=== PATIENT | female | born 1975 | race Caucasian/White ===

== ENCOUNTER 2017-01-14 14:42 | Emergency (ER) | payer OTHER ==
[~2017-01-14] VITALS: Ht 175.3 cm; Wt 65.8 kg
[2017-01-14 15:00] VITALS: TEMP 36.7; Ht 175.3 cm; Wt 65.8 kg
[2017-01-14] MEDS ORDERED: SODIUM CHLORIDE 0.9% 1000ML 1,000 ML IV STA (16:06)
[2017-01-14] MEDS ORDERED: MoRPHine SULFATE 4 MG/ML 1 ML CARP\\VIAL IV STA ×2 (16:06→19:16)
[2017-01-14] MEDS ORDERED: ONDANSETRON INJ 2 MG/ML 2 ML VIAL IV STA (16:06)
[2017-01-14] MEDS ORDERED: SULF800T23 PO (16:09)
--- NOTE | 2017-01-14 16:25 | EMERGENCY ROOM VISIT NOTE ---
History First contact with patient: 15:50 Chief Complaint: KIDNEY STONE Stated Complaint: KIDNEY INFECTION - POSSIBLE KIDNEY STONE History of Present Illness The patient is a 41 year old female who presents to the Emergency Room with complaints of flank pain. The patient states that she saw her family doctor and was diagnosed with a urinary tract infection. She has been on Bactrim. She feels as though her symptoms are worsening. She reports bilateral flank pain, nausea, vomiting, chills. She reports subjective fever. She rates her discomfort a 9/10. She states that the dysuria, urgency and frequency persist. The patient has a history of kidney stone. She has required stent in the past. She denies any vaginal bleeding or discharge. She denies any pain in her chest or trouble breathing. Review of Systems A 10 system review of systems was completed with positives and pertinent negatives listed in the HPI. Past Medical/Surgical History Medical Problems: (1) Kidney stone Social History Smoking Status: Current Every Day Smoker Alcohol Use: none Marital Status: single Current/Historical Medications Scheduled Cephalexin Monohydrate (Keflex), 500 MG PO QID Sulfa/Trimethoprim (Bactrim Ds 800MG/160MG), 1 TAB PO BID Scheduled PRN Oxycodone/Acetaminophen 5MG/325MG (Percocet 5MG/325MG), 1 TAB PO Q4H PRN for Pain Allergies Coded Allergies: No Known Allergies (Verified , 01/14/17) Physical Exam Vital Signs Date Time Temp Pulse Resp B/P Pulse Ox O2 Delivery O2 Flow Rate FiO2 01/14/17 19:45 64 20 124/70 98 01/14/17 18:54 53 20 120/70 98 Room Air 01/14/17 15:00 36.7 74 20 127/76 97 Room Air Physical Exam VITALS: Vitals are noted on the nurse's note and reviewed by myself. Vital signs stable. The patient is afebrile. GENERAL: This is a 41-year-old female , in no acute distress, nondiaphoretic, well-developed well-nourished. SKIN: The skin was without rashes, erythema, edema, or bruising. There is no tenting of the skin. Capillary reflex less than 2 seconds. HEAD: Normocephalic atraumatic. EARS: External auditory canals clear, tympanic membranes pearly cronin without erythema or effusion bilaterally. EYES: Pupils equal round and reactive to light and accommodation. Conjunctivae without injection, sclerae without icterus. Extraocular movements intact. NOSE: Patent, turbinates without inflammation or discharge. MOUTH: Mucous membranes moist. Tonsils are not enlarged. Pharynx without erythema or exudate. Uvula midline. Airway patent. Tongue does not deviate. NECK: Supple without nuchal rigidity. No lymphadenopathy. No thyromegaly. Cervical spine is nontender. No JVD. HEART: Regular rate and rhythm without murmurs gallops or rubs. LUNGS: Clear to auscultation bilaterally without wheezes, rales or rhonchi. No dullness to percussion. No retractions or accessory muscle use. ABDOMEN: Positive bowel sounds x 4. Soft, moderate diffuse tenderness,, without masses or organomegaly. Kim sign negative. There is marked bilateral CVA tenderness. : The external genitalia is normal in appearance. There is moderate white vaginal discharge. There is no significant cervicitis. There is no cervical motion tenderness. There is moderate right adnexal tenderness. There is no left adnexal tenderness. Pelvic cultures were obtained. A female RN was present for the examination. MUSCULOSKELETAL: No muscle atrophy, erythema, or edema noted. Full range of motion in all extremities. No tenderness to palpation. Normal gait. Strength 5/5 throughout. NEURO: Patient was alert and oriented to person place and time. No focal neurological deficits. Medical Decision & Procedures ER Provider Diagnostic Interpretation: CT OF THE ABDOMEN AND PELVIS WITHOUT CONTRAST, STONE PROTOCOL CLINICAL HISTORY: Right flank pain. History of stones. COMPARISON STUDY: None. TECHNIQUE: Helical axial images of the abdomen and pelvis were obtained without IV or oral contrast according to renal stone protocol. FINDINGS: There is pectus excavatum deformity. Multiple bilateral renal calculi are noted. The largest is a 4 mm right renal calculi. There is malrotation of the right kidney. There is mild right collecting system dilatation. No ureteral calculi are identified. There is no perinephric infiltration. Unenhanced images of liver, spleen, adrenal glands and pancreas are normal. There is no evidence for a bowel obstruction. The appendix is normal. There is sigmoid diverticulosis without evidence for acute diverticulitis. No suspicious skeletal lesions are identified. Evaluation of the abdomen and pelvis suboptimal on this unenhanced exam. IMPRESSION: 1. Bilateral nephrolithiasis. No ureteral calculi. Mild right collecting system dilatation may be chronic although a recently passed with could have this imaging appearance. No perinephric infiltration. 2. Normal appendix. 3. No bowel obstruction. Laboratory Results 01/14/17 16:39 Red Blood Count 4.25, Mean Corpuscular Volume 99.5, Mean Corpuscular Hemoglobin 33.4, Mean Corpuscular Hemoglobin Concent 33.6, Mean Platelet Volume 10.0, Neutrophils (%) (Auto) 70.4, Lymphocytes (%) (Auto) 24.0, Monocytes (%) (Auto) 3.8, Eosinophils (%) (Auto) 1.0, Basophils (%) (Auto) 0.6, Neutrophils # (Auto) 7.14, Lymphocytes # (Auto) 2.43, Monocytes # (Auto) 0.39, Eosinophils # (Auto) 0.10, Basophils # (Auto) 0.06 01/14/17 16:39 Test 01/14/17 16:20 01/14/17 16:39 01/14/17 19:10 Urine Color YELLOW Urine Appearance TURBID (CLEAR) Urine pH 8.5 (4.5-7.5) Urine Specific [place] 1.012 (1.000-1.030) Urine Protein NEG (NEG) Urine Glucose (UA) NEG (NEG) Urine Ketones NEG (NEG) Urine Occult Blood 1+ (NEG) Urine Nitrite NEG (NEG) Urine Bilirubin NEG (NEG) Urine Urobilinogen NEG (NEG) Urine Leukocyte Esterase NEG (NEG) Urine WBC (Auto) 10-30 /hpf (0-5) Urine RBC (Auto) 0-4 /hpf (0-4) Urine Hyaline Casts (Auto) 0 /lpf (0-5) Urine Epithelial Cells (Auto) >30 /lpf (0-5) Urine Bacteria (Auto) 4+ (NEG) Urine Crystals AMORPHOUS SEDIMENT (NONE Urine Pathogenic Casts /lpf (0) Urine Test NEG (NEG) White Blood Count 10.14 K/uL (4.8-10.8) Red Blood Count 4.25 M/uL (4.2-5.4) Hemoglobin 14.2 g/dL (12.0-16.0) Hematocrit 42.3 % (37-47) Mean Corpuscular Volume 99.5 fL (80-100) Mean Corpuscular Hemoglobin 33.4 pg (25-34) Mean Corpuscular Hemoglobin Concent 33.6 g/dl (32-36) Platelet Count 273 K/uL (130-400) Mean Platelet Volume 10.0 fL (7.4-10.4) Neutrophils (%) (Auto) 70.4 % Lymphocytes (%) (Auto) 24.0 % Monocytes (%) (Auto) 3.8 % Eosinophils (%) (Auto) 1.0 % Basophils (%) (Auto) 0.6 % Neutrophils # (Auto) 7.14 K/uL (1.4-6.5) Lymphocytes # (Auto) 2.43 K/uL (1.2-3.4) Monocytes # (Auto) 0.39 K/uL (0.11-0.59) Eosinophils # (Auto) 0.10 K/uL (0-0.5) Basophils # (Auto) 0.06 K/uL (0-0.2) RDW Standard Deviation 48.8 fL (36.4-46.3) RDW Coefficient of Variation 13.6 % (11.5-14.5) Immature Granulocyte % (Auto) 0.2 % Immature Granulocyte # (Auto) 0.02 K/uL (0.00-0.02) Anion Gap 5.0 mmol/L (3-11) Est Creatinine Clear Calc Drug Dose 100.9 ml/min Estimated GFR () 111.9 Estimated GFR (Non- 96.6 BUN/Creatinine Ratio 15.4 (10-20) Calcium Level 9.0 mg/dl (8.5-10.1) Total Bilirubin 0.4 mg/dl (0.2-1) Aspartate Amino Transf (AST/SGOT) U/L (15-37) Alanine Aminotransferase (ALT/SGPT) 21 U/L (12-78) Alkaline Phosphatase 74 U/L (45-117) Total Protein 7.8 gm/dl (6.4-8.2) Albumin 4.1 gm/dl (3.4-5.0) Globulin 3.7 gm/dl (2.5-4.0) Albumin/Globulin Ratio 1.1 (0.9-2) Date/Time Source Procedure Growth Status 01/14/17 19:10 Vaginal Swab Trichomonas Preparation - Final Complete Medications Administered Medications (Trade) Dose Ordered Sig/Allyn Route Start Time Stop Time Status Last Admin Dose Admin Sodium Chloride (Nss 1000ml) 1,000 ml @ 999 mls/hr Q1H1M STAT IV 01/14/17 16:06 01/14/17 17:06 DC 01/14/17 16:06 999 MLS/HR Morphine Sulfate (MoRPHine SULFATE INJ) 4 mg NOW STAT IV 01/14/17 16:06 01/14/17 16:09 DC 01/14/17 16:54 4 MG Ondansetron HCl (Zofran Inj) 4 mg NOW STAT IV 01/14/17 16:06 01/14/17 16:09 DC 01/14/17 16:53 4 MG Ceftriaxone Sodium (Rocephin Inj) 1 gm NOW STAT IV 01/14/17 18:06 01/14/17 18:07 DC 01/14/17 18:53 1 GM Morphine Sulfate (MoRPHine SULFATE INJ) 4 mg NOW STAT IV 01/14/17 19:16 01/14/17 19:17 DC 01/14/17 19:32 4 MG Oxycodone/ Acetaminophen (Percocet 5/ 325MG Home Pack) 1 homepack UD ONCE PO 01/14/17 19:30 01/14/17 19:31 DC 01/14/17 19:32 1 HOMEPACK ED Course The patient was seen and examined. Previous visits were reviewed. Medication list was reviewed. The patient does not have a leukocytosis. She does not have any significant electrolyte abnormality. Urinalysis suggests urinary tract infection or possibly contamination. Pelvic cultures are pending. CT scan of the abdomen and pelvis was obtained as above. There is bilateral nephrolithiasis. There is no ureterolithiasis. There is question of potential passed stone given the dilatation of the right collecting system. The patient was hydrated with normal saline. She was initially given 4 mg IV morphine and 4 mg IV Zofran with good improvement in her pain. She was given 1 g IV Rocephin. Prior to discharge she complained of pain again and was given 4 mg IV morphine. The patient presents to the emergency department with flank pain and symptoms of urinary tract infection. Urinalysis appears to be consistent with urinary tract infection. I also consider contamination. The patient will be placed on Keflex and given a prescription for Percocet. Pelvic cultures are pending and she was advised that we will contact her if the results indicate need for change in treatment. The patient should follow-up with her family doctor next week. She should return to the ER with any worsening symptoms. The case was discussed with Dr. Mckenzie who agrees with the assessment and management plan. Medical Decision DIFFERENTIAL DIAGNOSIS: Hepatitis, cholecystitis, cholangitis, biliary colic, pancreatitis, pneumonia, subdiaphragmatic abscess, appendicitis, inguinal hernia , nephrolithiasis, inflammatory bowel disease, mesenteric adenitis, peptic ulcer disease, GERD, gastritis, pancreatitis, myocardial infarction, pericarditis, ruptured aortic aneurysm, appendicitis, gastroenteritis, bowel obstruction, splenic infarct, diverticulitis, mesenteric ischemia, metabolic, peritonitis, among others. Impression Primary Impression: Right flank pain Additional Impression: UTI (urinary tract infection) Departure Information Dispostion Home / Self-Care Condition GOOD Prescriptions Cephalexin Monohydrate (Keflex) 500 Mg Cap 500 MG PO QID for 7 Days, #28 CAP Prov: Brandee Doll PA-C 01/14/17 Oxycodone/Acetaminophen 5MG/325MG (PERCOCET 5MG/325MG) Tab 1 TAB PO Q4H Y for Pain, #18 TAB For Initial Treatment Prov: Brandee Doll PA-C 01/14/17 Referrals No Doctor, Assigned (PCP) Patient Instructions [facility], UTI Additional Instructions Keflex every 6 hours for 7 days Percocet 1-2 tablet every 4-6 hours as needed for worse pain. No driving or alcohol use with Percocet and do not take with Tylenol. Motrin 600 mg every 6-8 hours or moderate pain Follow up with urology as scheduled by your family doctor We will contact you if the culture results indicate the need for change in treatment Return with any worsening symptoms Problem Qualifiers Additional Impression: UTI (urinary tract infection) Urinary tract infection type: acute cystitis Hematuria presence: with hematuria Qualified Codes: N30.01 - Acute cystitis with hematuria
[2017-01-14 16:52] LABS: BASO % 0.6 %; BASO ABS # 0.06 K/uL (0-0.2); COMPLETE YES; HEMATOCRIT 42.3 % (37-47); IG% 0.2 %; LYMPH ABS # 2.43 K/uL (1.2-3.4); MEAN CELL VOLUME 99.5 fL (80-100); MEAN CORPUSCULAR HEMOGLOBIN 33.4 pg (25-34); MEAN CORPUSCULAR HGB CONC 33.6 g/dl (32-36); MONO % 3.8 %; NEUT % 70.4 %; PLATELET COUNT 273 K/uL (130-400); RED BLOOD COUNT 4.25 M/uL (4.2-5.4); WHITE BLOOD COUNT 10.14 K/uL (4.8-10.8)
[2017-01-14 16:54] LABS: PREG INTERNAL NEGATIVE QC NEG CLEAR BACKGROUND; PREG INTERNAL POSITIVE QC POS CONTROL LINE
[2017-01-14 16:57] LABS: URINE APPEARANCE TURBID (CLEAR); URINE BILIRUBIN NEG (NEG); URINE COLOR YELLOW; URINE EPITHELIAL CELL AUTO >30 /lpf (0-5); URINE NITRITE NEG (NEG); URINE PH 8.5 (4.5-7.5); URINE SPECIFIC GRAVITY 1.012 (1.000-1.030); UROBILINOGEN NEG (NEG); ZZUR CULT IF INDIC CLEAN CATCH YES
[2017-01-14 17:04] LABS: MANUAL MICROSCOPIC REQUIRED? NO; REVIEW REQ? YES
[2017-01-14 17:20] LABS: BLOOD UREA NITROGEN 12 mg/dl (7-18); BUN/CREATININE RATIO 15.4 (10-20); CARBON DIOXIDE 27 mmol/L (21-32); CHLORIDE 108 mmol/L (98-107); CREATININE 0.77 mg/dl (0.60-1.20); GLUCOSE 87 mg/dl (70-99); SODIUM 140 mmol/L (136-145)
[2017-01-14 17:21] LABS: ALB/GLOB RATIO 1.1 (0.9-2); ALKALINE PHOSPHATASE 74 U/L (45-117); ALT/SGPT 21 U/L (12-78)
--- NOTE | 2017-01-14 17:50 | DIAGNOSTIC IMAGING REPORT ---
CT OF THE ABDOMEN AND PELVIS WITHOUT CONTRAST, STONE PROTOCOL CLINICAL HISTORY: Right flank pain. History of stones. COMPARISON STUDY: None. TECHNIQUE: Helical axial images of the abdomen and pelvis were obtained without IV or oral contrast according to renal stone protocol. FINDINGS: There is pectus excavatum deformity. Multiple bilateral renal calculi are noted. The largest is a 4 mm right renal calculi. There is malrotation of the right kidney. There is mild right collecting system dilatation. No ureteral calculi are identified. There is no perinephric infiltration. Unenhanced images of liver, spleen, adrenal glands and pancreas are normal. There is no evidence for a bowel obstruction. The appendix is normal. There is sigmoid diverticulosis without evidence for acute diverticulitis. No suspicious skeletal lesions are identified. Evaluation of the abdomen and pelvis suboptimal on this unenhanced exam. IMPRESSION: 1. Bilateral nephrolithiasis. No ureteral calculi. Mild right collecting system dilatation may be chronic although a recently passed with could have this imaging appearance. No perinephric infiltration. 2. Normal appendix. 3. No bowel obstruction. Electronically signed by: Ruben Golden M.D. 01/14/2017 5:49 PM Dictated Date/Time: 01/14/2017 5:44 PM
[2017-01-14] MEDS ORDERED: CEFTRIAXONE SOD INJ 1 GM ADDVIAL IV STA (18:06)
[2017-01-14] MEDS ORDERED: CEPH500C PO (19:18)
[2017-01-14] MEDS ORDERED: OXYC-57 PO (19:18)
[2017-01-14] MEDS ORDERED: PERCOCET HOME PACK PO ONE (19:30)
[2017-01-14 19:45] VITALS: BP 124/70; PULSE 64; O2SAT 98
[2017-01-18 11:08] LABS: CHLAMYDIA TRACH RNA*** NOT DETECTED (NOT DETECTED); GC (NEIS GONORRHOEAE)RNA** NOT DETECTED (NOT DETECTED)
== END 2017-01-14 19:45 | disposition home or self-care (01) ==
LOC: C.EDB 14:45
DX: R10.84 Generalized abdominal pain (principal); N30.01 Acute cystitis with hematuria; F17.200 Nicotine dependence, unspecified, uncomplicated

== ENCOUNTER → 2017-03-22 | Outpatient (CLI) | payer OTHER ==
[~2017-03-22] MED LIST: OXYC-57 PO; SULF800T23 PO
== END | disposition home or self-care (01) ==
LOC: C.RDSM 12:51
PROVIDERS: ATTEND Family Medicine
DX: M79.642 Pain in left hand (principal)

== ENCOUNTER → 2017-03-24 | Outpatient (CLI) | payer OTHER ==
[~2017-03-24] MED LIST changes: +GADAVIST IV PRN
--- NOTE | 2017-03-24 12:48 | DIAGNOSTIC IMAGING REPORT ---
MRI OF THE LEFT HAND COMBO CLINICAL HISTORY: Left hand pain. Mass. COMPARISON STUDY: Radiographs of the left hand dated 03/22/2017. TECHNIQUE: MRI of the left hand is performed utilizing various T1 and T2-weighted sequences in the axial, sagittal, coronal planes. Contrast-enhanced sequences were acquired following the IV administration of 6 cc of Gadavist. FINDINGS: Normal marrow signal intensity is maintained throughout the regional skeletal structures. There is no MRI evidence of fracture. There is a well-circumscribed T1 hypointense and T2 hyperintense ovoid mass lesion identified between the proximal aspect of the third and fourth proximal phalanges, slightly palmar in location. This demonstrates homogeneous postcontrast enhancement and measures 2.0 x 1.2 x 1.2 cm. This is deep to the marker at the indicated site of interest. There is no bony involvement. No additional enhancing mass lesion is seen. The regional musculature is normal in bulk and signal intensity. The visualized flexor and extensor tendons are intact. IMPRESSION: There is a well-circumscribed ovoid mass lesion between the third and fourth proximal phalanges as detailed above. This is pathologically indeterminant, and the appearance suggests a nerve sheath tumor. Surgical resection is advised. Electronically signed by: Juan Langley M.D. 03/24/2017 12:47 PM Dictated Date/Time: 03/24/2017 12:39 PM
== END | disposition home or self-care (01) ==
LOC: C.MRI 10:24
PROVIDERS: ATTEND Family Medicine
DX: R22.32 Localized swelling, mass and lump, left upper limb (principal); M25.841 Other specified joint disorders, right hand

== ENCOUNTER 2017-07-15 01:40 | Emergency (ER) | payer OTHER ==
[~2017-07-15] VITALS: Ht 167.6 cm; Wt 64.1 kg
[~2017-07-15 01:40] MED LIST changes: -GADAVIST IV PRN
[2017-07-15 01:43] VITALS: BP 113/52; PULSE 80; TEMP 36.7; O2SAT 98; Ht 167.6 cm; Wt 64.1 kg
[2017-07-15] MEDS ORDERED: SULFAMETHOXAZOLE/TRIMETHOPRIM DS 800/160MG TAB PO STA (02:08)
--- NOTE | 2017-07-15 02:15 | EMERGENCY ROOM VISIT NOTE ---
History Report prepared by Nneka: Renata Huerta Under the Supervision of: Dr. Sobia Winter D.O. First contact with patient: 01:54 Chief Complaint: ARM PAIN Stated Complaint: ARMPIT PAIN History of Present Illness The patient is a 41 year old female who presents to the Emergency Room with complaints of worsening right armpit pain starting around 1 week ago. The patient thinks that she might have an ingrown hair. She had one on the left side before which had to be lanced and got infected. She started having some soreness in her armpit 1 week ago which has worsened. There is a bump which is progressively getting bigger and more painful. She denies any fever or other rashes or sores. She denies any history of diabetes or MRSA. She has not had any ingrown hairs in other locations besides her left armpit. Source of History: patient Onset: 1 week ago Position: other (right armpit) Quality: other (ingrown hair pain) Timing: worsening Associated Symptoms: No fevers, No rash Review of Systems See HPI for pertinent positives & negatives. A total of 6 systems reviewed and were otherwise negative. Past Medical & Surgical Medical Problems: (1) Kidney stone Family History No pertinent family history stated. Social History Smoking Status: Current Every Day Smoker Alcohol Use: none Marital Status: single Occupation Status: employed Current/Historical Medications Scheduled Sulfa/Trimethoprim (Bactrim Ds 800MG/160MG), 1 TAB PO BID Allergies Coded Allergies: No Known Allergies (Verified , 07/15/17) Physical Exam Vital Signs Date Time Temp Pulse Resp B/P (MAP) Pulse Ox O2 Delivery O2 Flow Rate FiO2 07/15/17 01:43 36.7 80 18 113/52 98 Room Air Physical Exam GENERAL: alert, well appearing, well nourished, no distress, non-toxic SKIN: no rashes and no bruising UPPER EXTREMITIES: Right axilla with 1 cm area of tenderness and induration. No overlying erythema. No rashes or sores to the area. No increased warmth. No central fluctuance. No other lymphadenopathy. LOWER EXTREMITIES: No pitting edema. NEURO EXAM: Normal sensorium, cranial nerves II-XII grossly intact, normal speech, no gross weakness of arms, no gross weakness of legs. Medical Decision & Procedures Medications Administered Medications (Trade) Dose Ordered Sig/Allyn Route Start Time Stop Time Status Last Admin Dose Admin Trimethoprim/ Sulfamethoxazole (Septra Ds 800/ 160MG Tab) 1 tab NOW STAT PO 07/15/17 02:08 07/15/17 02:09 DC 07/15/17 02:19 1 TAB ED Course 0202: The patient was evaluated in room B9. A complete history and physical exam was performed. I discussed the findings and the treatment plan with the patient. She verbalizes agreement and understanding. She was discharged home. 0208: Trimethoprim/Sulfamethoxazole 1 tab PO. Medical Decision Differential diagnosis: Etiologies such as cellulitis, abscess, MRSA infection, DVT, necrotizing fasciitis, dermatitis, drug eruption, as well as others were entertained.. Patient well-appearing here, no evidence of worsening infection at this time. Area does not appear amenable to incision and drainage at this time. Discussed with her use of antibiotics, symptoms to watch and return for, she verbalized understanding was agreeable with plan. Medication Reconcilliation Current Medication List: was personally reviewed by me Blood Pressure Screening Patient's blood pressure: Normal blood pressure Blood pressure disposition: Did not require urgent referral Impression Primary Impression: Axillary abscess Scribe Attestation The scribe's documentation has been prepared under my direction and personally reviewed by me in its entirety. I confirm that the note above accurately reflects all work, treatment, procedures, and medical decision making performed by me. Departure Information Dispostion Home / Self-Care Prescriptions Sulfa/Trimethoprim (Bactrim Ds 800MG/160MG) Tab 1 TAB PO BID, #14 TAB Prov: Sobia Winter, DO 07/15/17 Referrals Femi Weems M.D. (PCP) Patient Instructions [facility] Additional Instructions Please do not shave the affected arm pit or use deodorant until infection has resolved. Please take the antibiotics daily. Please have your family doctor recheck the area next week to assure it is getting better. If you develop an increase in the size of the affected area, notice increased warmth or redness in the arm pit, develop swelling to the arm pit, fevers or chills, nausea or vomiting, or you have any other new concerns, please return the emergency room. Please consider taking an probiotic while you're on antibiotics. Please make sure you're drinking plenty of water.
[2017-07-15] MEDS ORDERED: SULF800T23 PO (02:16)
== END 2017-07-15 02:15 | disposition home or self-care (01) ==
LOC: C.EDB 01:41
DX: L02.411 Cutaneous abscess of right axilla (principal); Z87.442 Personal history of urinary calculi; F17.210 Nicotine dependence, cigarettes, uncomplicated

== ENCOUNTER 2017-08-01 17:23 | Emergency (ER) | payer SELFPAY ==
[~2017-08-01] VITALS: Ht 167.6 cm; Wt 64.0 kg
[~2017-08-01 17:23] MED LIST changes: -OXYC-57 PO
[2017-08-01 17:28] VITALS: TEMP 36.7; Ht 167.6 cm; Wt 64.0 kg
--- NOTE | 2017-08-01 18:46 | DIAGNOSTIC IMAGING REPORT ---
TWO VIEW CHEST CLINICAL HISTORY: Productive cough. FINDINGS: PA and lateral chest radiographs are compared to study dated 10/20/2006. The cardiomediastinal silhouette is unremarkable. The lungs and pleural spaces are clear. There is no pneumothorax. The bony thorax appears intact. IMPRESSION: No active disease in the chest. Electronically signed by: Juan Langley M.D. 08/01/2017 6:45 PM Dictated Date/Time: 08/01/2017 6:45 PM
[2017-08-01] MEDS ORDERED: VNTHFA/IN INH (19:08)
[2017-08-01] MEDS ORDERED: HYDR5SYP11 PO (19:08)
[2017-08-01] MEDS ORDERED: AZITTAB PO (19:08)
[2017-08-01] MEDS ORDERED: TOPI100T20 PO (19:27)
[2017-08-01] MEDS ORDERED: RIZA10TA18 PO (19:29)
[2017-08-01 19:37] VITALS: BP 132/70; PULSE 78; O2SAT 98
--- NOTE | 2017-08-01 21:05 | EMERGENCY ROOM VISIT NOTE ---
History First contact with patient: 17:32 Chief Complaint: ILLNESS Stated Complaint: SORE THROAT, COUGH, SOB History of Present Illness The patient is a 41 year old female who presents to the Emergency Room with complaints of worsening productive cough, sore throat, runny nose and chest discomfort. The patient also reports difficulty sleeping because of coughing. She reports that her sister had a cold last week. The patient's symptoms started on Tuesday. She denies any history of lung disease, including asthma. She smokes one half pack of cigarettes daily. She denies any sitting in sinus congestion. She denies headache, neck pain or back pain, and rates her discomfort a 4 out of 10. Review of Systems 10 system review was performed and was negative except for pertinent positives and negatives as indicated in history of present illness Past Medical/Surgical History Medical Problems: (1) Kidney stone Family History Unremarkable Social History Smoking Status: Current Every Day Smoker Alcohol Use: none Marital Status: single Occupation Status: employed Current/Historical Medications Scheduled Albuterol Hfa (Ventolin Hfa), 2 PUFFS INH QID Azithromycin (Zithromax Z-Karl), 0 PO UD Rizatriptan Benzoate (Maxalt), Unknown Dose PO PRN/UD Topiramate (Topamax), Unknown Dose PO DAILY Scheduled PRN Hydrocodone W/ Homatropine (Hycodan 5/1.5MG 5 Ml), 5-10 ML PO Q4H PRN for Cough Physical Exam Vital Signs Date Time Temp Pulse Resp B/P (MAP) Pulse Ox O2 Delivery O2 Flow Rate FiO2 08/01/17 19:37 78 20 132/70 98 08/01/17 17:28 36.7 86 18 124/78 98 Room Air Physical Exam CONSTITUTIONAL: Healthy and well nourished. Alert and oriented X 3 with positive affect. Patient has a mild nonproductive cough on exam. HEENT: Normocephalic, atraumatic. Pupils equal, round and reactive. Ears and nares are clear. OROPHARYNX: No tonsillar hypertrophy or exudates. NECK: Full active range of motion without discomfort. No nuchal rigidity, JVD or carotid bruits. RESPIRATORY: Clear to auscultation bilaterally with no wheezing, crackles, rhonchi or stridor. CARDIOVASCULAR: Regular rate and rhythm with no murmurs, rubs or gallops. GASTROINTESTINAL: Bowel sounds present in all quadrants. Soft and nontender to palpation. MUSCULOSKELETAL: Full range of motion of all joints without discomfort. INTEGUMENTARY: No rash or other significant dermatologic conditions noted. NEUROLOGIC: No focal neurologic deficits noted. Medical Decision & Procedures ER Provider Diagnostic Interpretation: My interpretation of a two-view chest x-ray does not show any consolidations or cardiomegaly. Radiologist report is as follows: TWO VIEW CHEST CLINICAL HISTORY: Productive cough. FINDINGS: PA and lateral chest radiographs are compared to study dated 10/20/2006. The cardiomediastinal silhouette is unremarkable. The lungs and pleural spaces are clear. There is no pneumothorax. The bony thorax appears intact. IMPRESSION: No active disease in the chest. ED Course Patient history and physical exam were performed. Nurse's notes were reviewed. Vital signs were reviewed and were normal. O2 saturation is not 8% on room air, and the patient is afebrile. The patient was advised that she likely has a viral bronchitis. She was advised that antibiotics do not kill viruses. She requested a prescription for something to help with her cough. She was dispensed an AeroChamber, and provided prescriptions for a Ventolin metered- dose inhaler and Hycodan cough syrup. If the patient's symptoms worsen, she was provided a prescription for a Z-Karl. She was instructed to follow-up with her PCP if symptoms are not improving within the next week. The patient was happy with plan of care, and voiced understanding of all discharge instructions. Medical Decision Medication Reconcilliation Current Medication List: was personally reviewed by nd Blood Pressure Screening Patient's blood pressure: Normal blood pressure Impression Primary Impression: Acute bronchitis Departure Information Prescriptions Azithromycin (ZITHROMAX Z-KARL) 250 Mg Tab 0 PO UD, #1 PKT 2 TABS DAY 1, THEN 1 TAB DAILY FOR 4 DAYS Prov: Davon Thibodeaux PA 08/01/17 Hydrocodone W/ Homatropine (HYCODAN 5/1.5MG 5 ML) 1 Syp Syp 5-10 ML PO Q4H Y for Cough, #200 ML Prov: Davon Thibodeaux PA 08/01/17 Albuterol Hfa (VENTOLIN HFA) 200 Puffs/52173 Mcg Aers 2 PUFFS INH QID, #1 INHALER Prov: Davon Thibodeaux PA 08/01/17 Referrals Femi Weems M.D. (PCP) Patient Instructions [facility] Problem Qualifiers Primary Impression: Acute bronchitis Bronchitis organism: unspecified organism Qualified Codes: J20.9 - Acute bronchitis, unspecified
== END 2017-08-01 19:38 | disposition home or self-care (01) ==
LOC: C.EDB 17:23
DX: J20.9 Acute bronchitis, unspecified (principal); F17.210 Nicotine dependence, cigarettes, uncomplicated; Z87.442 Personal history of urinary calculi; Z79.899 Other long term (current) drug therapy

== ENCOUNTER 2017-08-04 20:59 | Emergency (ER) | payer SELFPAY ==
[~2017-08-04] VITALS: Ht 167.6 cm; Wt 64.8 kg
[~2017-08-04 20:59] MED LIST changes: +AZITTAB PO; +HYDR5SYP11 PO; +RIZA10TA18 PO; -SULF800T23 PO; +TOPI100T20 PO; +VNTHFA/IN INH
[2017-08-04 21:01] VITALS: TEMP 36.5; Ht 167.6 cm; Wt 64.8 kg
[2017-08-04] MEDS ORDERED: TOPI50TA24 PO (21:21)
[2017-08-04] MEDS ORDERED: METHYLPREDNISOLONE 125 MG VIAL IV STA (21:44)
[2017-08-04] MEDS ORDERED: SODIUM CHLORIDE 0.9% 1000ML 1,000 ML IV ONE (21:45)
[2017-08-04 22:31] LABS: BASO % 0.7 %; BASO ABS # 0.06 K/uL (0-0.2); COMPLETE YES; EOS % 2.3 %; HEMATOCRIT 38.6 % (37-47); IG% 0.4 %; LYMPH % 38.9 %; LYMPH ABS # 3.32 K/uL (1.2-3.4); MEAN CELL VOLUME 97.2 fL (80-100); MEAN CORPUSCULAR HGB CONC 33.9 g/dl (32-36); MONO % 4.9 %; NEUT % 52.8 %; PLATELET COUNT 222 K/uL (130-400); RED BLOOD COUNT 3.97 M/uL (4.2-5.4); WHITE BLOOD COUNT 8.53 K/uL (4.8-10.8)
[2017-08-04 22:46] LABS: CALCIUM 9.3 mg/dl (8.5-10.1); CREATININE 0.77 mg/dl (0.60-1.20); POTASSIUM 3.5 mmol/L (3.5-5.1)
[2017-08-04 22:49] LABS: ALB/GLOB RATIO 1.2 (0.9-2)
[2017-08-04 23:43] VITALS: BP 116/66; PULSE 60; O2SAT 95
--- NOTE | 2017-08-05 04:52 | EMERGENCY ROOM VISIT NOTE ---
History First contact with patient: 21:33 Chief Complaint: FLU LIKE SX Stated Complaint: FEVER,CHILLS,BODY ACHES,SOB History of Present Illness The patient is a 41 year old female who presents to the Emergency Room with complaints of fevers, chills, body aches, and persistent cough for the past several days. The patient was initially seen and evaluated in this department with his complaint 3 days ago. She was started on Zithromax and an inhaler for bronchitis. She states that these have improved her symptoms, however she does not feel that she is improving fast enough. The patient has had the last few days off work, and does not feel well to return, prompting her to return here for evaluation. She states that she had an episode of emesis today which was different. No diarrhea or other symptoms. She rates her discomfort a 2/10. Review of Systems More than 10 systems were reviewed and otherwise negative with the exception of history of present illness. Past Medical/Surgical History Medical Problems: (1) Kidney stone Family History No pertinent family history Social History Smoking Status: Never Smoker Alcohol Use: none Marital Status: single Occupation Status: employed Current/Historical Medications Scheduled Albuterol Hfa (Ventolin Hfa), 2 PUFFS INH QID Topiramate (Topamax), 50 MG PO QAM Scheduled PRN Hydrocodone W/ Homatropine (Hycodan 5/1.5MG 5 Ml), 5-10 ML PO Q4H PRN for Cough Rizatriptan Benzoate (Maxalt), 10 MG PO UD PRN for Migraine Physical Exam Vital Signs Date Time Temp Pulse Resp B/P (MAP) Pulse Ox O2 Delivery O2 Flow Rate FiO2 08/04/17 23:43 60 18 116/66 95 08/04/17 21:01 36.5 86 16 151/84 97 Room Air Physical Exam VITALS: Vitals are noted on the nurse's note and reviewed by myself. Vital signs stable. GENERAL: Well-developed, well-nourished, white female, who is in no acute distress and resting comfortably. Patient is cooperative with the examination. HEAD: Normocephalic atraumatic. EARS: External ear normal. External auditory canals clear, tympanic membranes pearly cronin without erythema or effusion bilaterally. EYES: Pupils equal round and reactive to light and accommodation. Conjunctivae without injection, sclerae without icterus. Extraocular movements intact. NOSE: Patent, turbinates without inflammation or discharge. MOUTH: Mucous membranes moist. Tonsils are not enlarged. Pharynx without erythema, blood, or exudate. Uvula midline. Airway patent. NECK: Supple without nuchal rigidity. No lymphadenopathy. No thyromegaly. Cervical spine is nontender. HEART: Regular rate and rhythm without murmurs gallops or rubs. LUNGS: Clear to auscultation bilaterally without wheezes, rales or rhonchi. No retractions or accessory muscle use. ABDOMEN: Positive normal bowel sounds x 4. Soft, nontender, without masses or organomegaly. No guarding or rebound tenderness. MUSCULOSKELETAL: No muscle atrophy, erythema, or edema noted. Full range of motion without joint tenderness in all extremities. Medical Decision & Procedures Laboratory Results 08/04/17 22:05 Red Blood Count 3.97, Mean Corpuscular Volume 97.2, Mean Corpuscular Hemoglobin 33.0, Mean Corpuscular Hemoglobin Concent 33.9, Mean Platelet Volume 10.0, Neutrophils (%) (Auto) 52.8, Lymphocytes (%) (Auto) 38.9, Monocytes (%) (Auto) 4.9, Eosinophils (%) (Auto) 2.3, Basophils (%) (Auto) 0.7, Neutrophils # (Auto) 4.50, Lymphocytes # (Auto) 3.32, Monocytes # (Auto) 0.42, Eosinophils # (Auto) 0.20, Basophils # (Auto) 0.06 08/04/17 22:05 Test 08/04/17 22:05 White Blood Count 8.53 K/uL (4.8-10.8) Red Blood Count 3.97 M/uL (4.2-5.4) Hemoglobin 13.1 g/dL (12.0-16.0) Hematocrit 38.6 % (37-47) Mean Corpuscular Volume 97.2 fL (80-100) Mean Corpuscular Hemoglobin 33.0 pg (25-34) Mean Corpuscular Hemoglobin Concent 33.9 g/dl (32-36) Platelet Count 222 K/uL (130-400) Mean Platelet Volume 10.0 fL (7.4-10.4) Neutrophils (%) (Auto) 52.8 % Lymphocytes (%) (Auto) 38.9 % Monocytes (%) (Auto) 4.9 % Eosinophils (%) (Auto) 2.3 % Basophils (%) (Auto) 0.7 % Neutrophils # (Auto) 4.50 K/uL (1.4-6.5) Lymphocytes # (Auto) 3.32 K/uL (1.2-3.4) Monocytes # (Auto) 0.42 K/uL (0.11-0.59) Eosinophils # (Auto) 0.20 K/uL (0-0.5) Basophils # (Auto) 0.06 K/uL (0-0.2) RDW Standard Deviation 45.9 fL (36.4-46.3) RDW Coefficient of Variation 12.8 % (11.5-14.5) Immature Granulocyte % (Auto) 0.4 % Immature Granulocyte # (Auto) 0.03 K/uL (0.00-0.02) Anion Gap 7.0 mmol/L (3-11) Est Creatinine Clear Calc Drug Dose 90.9 ml/min Estimated GFR () 111.9 Estimated GFR (Non- 96.6 BUN/Creatinine Ratio 20.0 (10-20) Calcium Level 9.3 mg/dl (8.5-10.1) Total Bilirubin 0.2 mg/dl (0.2-1) Aspartate Amino Transf (AST/SGOT) 16 U/L (15-37) Alanine Aminotransferase (ALT/SGPT) 29 U/L (12-78) Alkaline Phosphatase 80 U/L (45-117) Total Protein 7.2 gm/dl (6.4-8.2) Albumin 3.9 gm/dl (3.4-5.0) Globulin 3.3 gm/dl (2.5-4.0) Albumin/Globulin Ratio 1.2 (0.9-2) Medications Administered Medications (Trade) Dose Ordered Sig/Allyn Route Start Time Stop Time Status Last Admin Dose Admin Sodium Chloride 1,000 ml @ 999 mls/hr Q1H1M ONCE IV 08/04/17 21:45 08/04/17 22:45 DC 08/04/17 22:03 999 MLS/HR Methylprednisolone Sodium Succinate (Solu-Medrol IV) 125 mg NOW STAT IV 08/04/17 21:44 08/04/17 21:45 DC 08/04/17 22:03 125 MG ED Course Physical exam and history were performed. Nursing notes, EMR, and Medication List were personally reviewed. Patient appears to have flulike symptoms for the past several days. The patient does not appear toxic on examination. She states that she does have some different symptoms than from a few days ago, as she now has had vomiting. IV access was established and labs were obtained. The patient was hydrated with normal saline. The patient's blood work is as above and was reviewed. She does not have a significantly elevated white blood cell count or gross anemia, bandemia, or significant electrolyte imbalance. Transaminases are nondiagnostic. Overall the patient appears well for discharge home. She does not have signs of sepsis or other more life-threatening process. Her symptoms certainly favor a viral etiology. There is a component of this with the patient is needing a few more days off work. I will write her a note, but informed her that she needs to follow up with her PCP for further care and management. The patient was otherwise invited back to the ER with any new, worsening, or concerning symptoms. The chart was completed utilizing [employer] Speech Voice Recognition Software. Grammatical errors, random word insertions, pronoun errors, and incomplete sentences are an occasional consequence of this system due to software limitations, ambient noise, and hardware issues. Any formal questions or concerns about the content, text, or information contained within the body of this dictation should be directly addressed to the provider for clarification. . Medical Decision Differential diagnosis: Etiologies such as viral syndrome, otitis, pharyngitis, pneumonia, influenza, meningitis, urinary tract infection, sepsis, bacteremia, as well as others were entertained. Impression Primary Impression: Influenza-like symptoms Departure Information Dispostion Home / Self-Care Condition GOOD Forms HOME CARE DOCUMENTATION FORM, Work Instructions, Additional Instructions: Patient seen and evaluated in the emergency department for medical care. Return to work on . IMPORTANT VISIT INFORMATION Patient Instructions [facility] Additional Instructions You were seen and evaluated today on an emergency basis only. This is not a substitute for, or an effort to provide, complete comprehensive medical care. It is not possible to recognize and treat all injuries or illnesses in a single emergency department visit. For this reason it is recommended that you followup with your primary care physician next week for ongoing care and evaluation. You are welcome to return to the emergency department anytime with new, worsening, or concerning symptoms. Work Instructions Additional Work Instructions: Patient seen and evaluated in the emergency department for medical care. Return to work on .
== END 2017-08-04 23:44 | disposition home or self-care (01) ==
LOC: C.EDB 21:01 → C.EDA 23:44
DX: R50.9 Fever, unspecified (principal); R05 Cough; Z87.442 Personal history of urinary calculi

== ENCOUNTER 2017-11-03 05:25 | Day surgery (SDC) | payer SELFPAY ==
[2017-10-26 08:56] VITALS: BMI 22.0
--- NOTE | 2017-10-26 09:16 | PAT Medication Instructions ---
Service Date Oct 26, 2017. Current Home Medication List Rizatriptan Benzoate (Maxalt), 10 MG PO UD PRN for Migraine Topiramate (Topamax), 50 MG PO QAM Medication Instructions For Your Scheduled Surgery - Take the following medications the morning of surgery with a sip of water: Topiramate (Topamax), 50 MG PO QAM Rizatriptan Benzoate (Maxalt), 10 MG PO UD PRN for Migraine (if needed) - Take the following medications as scheduled the night before surgery: Rizatriptan Benzoate (Maxalt), 10 MG PO UD PRN for Migraine (if needed) If you have any questions please call us at [phone] or [phone] or [phone]
--- NOTE | 2017-10-26 09:49 | DIAGNOSTIC IMAGING REPORT ---
CHEST 2 VIEWS ROUTINE HISTORY: 41 years-old Female PAT preoperative exam. No acute chest complaints COMPARISON: Chest radiographs 08/01/2017 TECHNIQUE: PA and lateral views of the chest FINDINGS: The cardiomediastinal and hilar silhouettes are within normal limits. There is no pneumothorax, pleural effusion, focal airspace consolidation or overt pulmonary edema. The bones of the chest appear grossly intact. IMPRESSION: No acute process. The above report was generated using voice recognition software. It may contain grammatical, syntax or spelling errors. Electronically signed by: Pool Cortez M.D. 10/26/2017 9:48 AM Dictated Date/Time: 10/26/2017 9:47 AM
[2017-10-26 10:24] LABS: BASO % 0.7 %; BASO ABS # 0.06 K/uL (0-0.2); EOS % 2.4 %; HEMATOCRIT 40.8 % (37-47); HEMOGLOBIN 14.2 g/dL (12.0-16.0); IG# 0.02 K/uL (0.00-0.02); LYMPH ABS # 2.45 K/uL (1.2-3.4); MEAN CELL VOLUME 95.8 fL (80-100); MEAN CORPUSCULAR HEMOGLOBIN 33.3 pg (25-34); MEAN CORPUSCULAR HGB CONC 34.8 g/dl (32-36); MONO % 7.2 %; MONO ABS # 0.61 K/uL (0.11-0.59); NEUT % 60.5 %; PLATELET COUNT 233 K/uL (130-400); RED CELL DISTRIBUTION WIDTH CV 13.4 % (11.5-14.5); RED CELL DISTRIBUTION WIDTH SD 46.2 fL (36.4-46.3); WHITE BLOOD COUNT 8.44 K/uL (4.8-10.8)
[2017-10-26 10:33] LABS: CALCIUM 9.4 mg/dl (8.5-10.1); CREATININE 0.76 mg/dl (0.60-1.20); POTASSIUM 3.7 mmol/L (3.5-5.1)
[~2017-11-03] VITALS: Ht 167.6 cm; Wt 63.5 kg
[~2017-11-03 05:25] MED LIST changes: -AZITTAB PO; -HYDR5SYP11 PO; -TOPI100T20 PO; +TOPI50TA24 PO; -VNTHFA/IN INH
[2017-11-03 05:42] VITALS: BP 112/56; PULSE 76; TEMP 36.8; O2SAT 97; Ht 167.6 cm; Wt 63.5 kg
[2017-11-03] MEDS ORDERED: SODIUM CHLORIDE 0.9% 1000ML 1,000 ML IV SCH (06:00)
[2017-11-03] MEDS ORDERED: GLYCOPYRROLATE INJ 0.2 MG/ML VIAL ONE (06:48)
[2017-11-03] MEDS ORDERED: PROPOFOL IV EMULSION 10 MG/ML 20 ML VIAL IV ONE (06:48)
[2017-11-03] MEDS ORDERED: LIDOCAINE HCL 2% 2 ML VIAL (20MG/ML) ONE (06:48)
[2017-11-03] MEDS ORDERED: ONDANSETRON INJ 2 MG/ML 2 ML VIAL ONE (06:48)
[2017-11-03] MEDS ORDERED: FENTANYL CITRATE INJ 50 MCG/1 ML 2 ML VIAL ONE (06:49)
[2017-11-03] MEDS ORDERED: MIDAZOLAM HCL 1 MG/ML 2ML VIAL ONE (06:50)
[2017-11-03] MEDS ORDERED: Cysto-Conray II 17.2% 250ML BOTTLE ONE (07:06)
--- NOTE | 2017-11-03 07:13 | History & Physical Bridge Note ---
H&P Re-Evaluation Bridge Note: I have examined the patient, reviewed the History & Physical and in the interval since the performance of the History & Physical I have noted the following changes of clinical significance: No changes noted
[2017-11-03] MEDS: CIPROFLOXACIN / D5W 400 MG IV SCH (07:15)
[2017-11-03] MEDS ORDERED: CIPR-255 PO (07:28)
[2017-11-03] MEDS ORDERED: OXYC7.5T65 PO (07:28)
[2017-11-03] MEDS ORDERED: PHEN-775 PO (07:28)
--- NOTE | 2017-11-03 07:31 | Discharge Instructions ---
Discharge Instructions Date of Service Nov 03, 2017. Admission Reason for Admission: Nephrolithiasis Discharge Discharge Diagnosis / Problem: Stone Discharge Goals Goal(s): Decrease discomfort, Improve function Activity Recommendations Activity Limitations: resume your previous activity Lifting Limitations: gradually increase as tolerated Exercise/Sports Limitations: gradually increase as tolerated Shower/Bathe: no limitations . Instructions / Follow-Up Instructions / Follow-Up May have blood in urine. may have pelvic discomfort. Call if any fevers o chills. Current Hospital Diet Patient's current hospital diet: Discharge Diet Recommended Diet: Regular Diet Procedures Procedures Performed: Cystoscopy, Right URS, Stone extraction and laser with stent. Pending Studies Studies pending at discharge: no Medical Emergencies . Who to Call and When: Medical Emergencies: If at any time you feel your situation is an emergency, please call 911 immediately. . Non-Emergent Contact Non-Emergency issues call your: Primary Care Provider, Urologist Call Non-Emergent contact if: you have a fever, temperature is above 101, temperature is above 101.5, your pain is not controlled, your pain is worsening . . "Provider Documentation" section prepared by Ray Palmer,. .
[2017-11-03] MEDS ORDERED: OXYCODONE/ACETAMINOPHEN 7.5-325 TAB PO PRN (07:45)
[2017-11-03] MEDS ORDERED: EpHEDrine SULFATE INJ 50 MG/ML AMP IV PRN (08:00)
[2017-11-03] MEDS ORDERED: ONDANSETRON INJ 2 MG/ML 2 ML VIAL IV PRN (08:00)
[2017-11-03] MEDS ORDERED: ATROPINE SULFATE 0.1 MG/ML 5ML SYR IV PRN (08:00)
[2017-11-03] MEDS ORDERED: FENTANYL CITRATE INJ 50 MCG/1 ML 2 ML VIAL IV PRN (08:00)
--- NOTE | 2017-11-03 08:05 | [facility] Operative Report ---
Operative Report Operative Date Nov 03, 2017. Pre-Operative Diagnosis Bilateral Stones Post-Operative Diagnosis Same Procedure(s) Performed Cystoscopy with right ureteroscopy, laser lithotripsy, stone extraction, and stent placement with retrograde pyelogram Surgeon Spencer Estimated Blood Loss Minimal Findings Stone on Right Specimens Stone, right kidney Drains 6x24 on Right Anesthesia Type General Complication(s) none Disposition Recovery Room / PACU Indications Bilateral symptomatic stones. Risks and benefits discussed. Right more symptomatic than left. Description of Procedure Patient was consented and brought back to the operating room. Patient was placed under anesthesia in the supine position and moved to the dorsal lithotomy position. Patient was prepped and draped in the regular sterile fashion. A time out was completed. A 30degree Cystoscope was placed into the bladder and the entire bladder was examined. The UO's were identified. The right was cannulized with a catheter and a retrograde pyelogram was completed]. A wire was then placed. A sheath and a safety wire was placed. The flexible scope was placed in the sheath and taken into the kidney. The stones were encountered. A laser was selected and the stones were pulverized to dust and small fragments. Small fragments were basketed and taken out and sent for pathologic analysis. The kidney cleared and all stone adequately destroyed, the scope was removed and the ureter examined. The safety wire was left. With the wire in place, a 6 x [24] Double J stent was placed. It was confirmed with fluoroscopy. With the stent in place, the bladder was emptied. The scope was removed. The patient was cleaned, aroused from anesthesia, and transferred to the pacu in stable condition having tolerated the procedure well with no complications. I was present and participated in all aspects of the procedure. The patient will be monitored in the PACU until transferred. I attest to the content of the Intraoperative Record and any orders documented therein. Any exceptions are noted below.
[2017-11-03] MEDS ORDERED: DEXAMETHASONE SOD INJ 4 MG/ML VIAL ONE (08:24)
--- NOTE | 2017-11-03 08:26 | DIAGNOSTIC IMAGING REPORT ---
RETROGRADE INCLUDES KUB CLINICAL HISTORY: 41 years-old Female presenting with RT LASER LITHO. TECHNIQUE: 4 fluoroscopic spot image(s) obtained as part of an intraoperative procedure. COMPARISON: Plain radiograph from 09/05/2017. FINDINGS/IMPRESSION: A guidewire was introduced into the right renal collecting system, which was subsequently opacified with contrast. Mild distention of the right renal collecting system and subsequently a right ureteral stent was placed. Please see surgical report for further details. Dose area product (mGy.cm^2): 1792.5. Fluoroscopy time: 53.1 seconds. Number of fluoroscopic spot images: 4. Electronically signed by: Wilber Andrade M.D. 11/03/2017 8:25 AM Dictated Date/Time: 11/03/2017 8:24 AM
[2017-11-03 09:00] VITALS: BP 102/55; PULSE 65; TEMP 36.5; O2SAT 100
[2017-11-03] MEDS ORDERED: OXYCODONE/ACETAMINOPHEN 7.5-325 TAB ONE (09:11)
--- NOTE | 2017-11-03 09:23 | Anesthesiology Progress Note ---
Anesthesia Post Op Note Date & Time Nov 03, 2017 at 09:23 Vital Signs Pain Intensity: 7 Vital Signs Past 12 Hours Date Time Temp Pulse Resp B/P (MAP) Pulse Ox O2 Delivery O2 Flow Rate FiO2 11/03/17 09:00 36.5 65 18 102/55 100 Room Air 11/03/17 08:54 36.5 64 18 101/62 99 Room Air 11/03/17 08:45 80 16 107/66 100 Room Air 11/03/17 08:35 64 16 100/48 100 Nasal Cannula 2 11/03/17 08:25 68 16 115/63 100 Nasal Cannula 2 11/03/17 08:15 36.4 76 16 119/79 99 Nasal Cannula 2 11/03/17 05:42 36.8 76 20 112/56 (74) 97 Room Air Notes Mental Status: alert / awake / arousable, participated in evaluation Pt Amnestic to Procedure: Yes Nausea / Vomiting: adequately controlled Pain: adequately controlled Airway Patency, RR, SpO2: stable & adequate BP & HR: stable & adequate Hydration State: stable & adequate Anesthetic Complications: no major complications apparent
[2017-11-03 09:30] VITALS: BP 99/56; PULSE 66; TEMP 36.6; O2SAT 100
== END 2017-11-03 09:48 | disposition home or self-care (01) ==
LOC: C.ACU 05:25
PROVIDERS: ATTEND Urology
DX: N20.0 Calculus of kidney (principal); M19.90 Unspecified osteoarthritis, unspecified site; F17.200 Nicotine dependence, unspecified, uncomplicated; Z90.710 Acquired absence of both cervix and uterus; Z82.49 Family history of ischemic heart disease and other diseases of the circulatory system; Z84.1 Family history of disorders of kidney and ureter; Z83.3 Family history of diabetes mellitus

== ENCOUNTER → 2017-11-17 | Outpatient (CLI) | payer OTHER ==
[~2017-11-17] MED LIST changes: +CIPR-255 PO; +OXYC7.5T65 PO
[2017-11-17 11:33] LABS: BASO ABS # 0.09 K/uL (0-0.2); EOS ABS # 0.18 K/uL (0-0.5); HEMATOCRIT 40.7 % (37-47); HEMOGLOBIN 13.8 g/dL (12.0-16.0); IG# 0.02 K/uL (0.00-0.02); LYMPH ABS # 2.86 K/uL (1.2-3.4); MEAN CELL VOLUME 96.2 fL (80-100); MEAN CORPUSCULAR HEMOGLOBIN 32.6 pg (25-34); MEAN CORPUSCULAR HGB CONC 33.9 g/dl (32-36); MEAN PLATELET VOLUME 9.8 fL (7.4-10.4); MONO ABS # 0.54 K/uL (0.11-0.59); NEUT % 58.8 %; NEUT ABS # 5.26 K/uL (1.4-6.5); PLATELET COUNT 271 K/uL (130-400); RED CELL DISTRIBUTION WIDTH CV 13.2 % (11.5-14.5); RED CELL DISTRIBUTION WIDTH SD 46.2 fL (36.4-46.3); WHITE BLOOD COUNT 8.95 K/uL (4.8-10.8)
[2017-11-17 12:01] LABS: BLOOD UREA NITROGEN 15 mg/dl (7-18); CALCIUM 9.2 mg/dl (8.5-10.1); CARBON DIOXIDE 24 mmol/L (21-32); CREATININE 0.74 mg/dl (0.60-1.20); GLUCOSE 74 mg/dl (70-99); POTASSIUM 3.9 mmol/L (3.5-5.1); SODIUM 138 mmol/L (136-145)
== END | disposition home or self-care (01) ==
LOC: C.LAB 10:38
PROVIDERS: ATTEND Urology
DX: N20.0 Calculus of kidney (principal)

== ENCOUNTER 2017-12-05 08:21 | Day surgery (SDC) | payer OTHER ==
[2017-11-18 12:50] VITALS: BMI 21.0
[~2017-12-05] VITALS: Ht 167.6 cm; Wt 59.1 kg
[~2017-12-05 08:21] MED LIST changes: +ATROPINE SULFATE 0.1 MG/ML 5ML SYR IV PRN; -CIPR-255 PO; +CIPROFLOXACIN / D5W 400 MG IV SCH; +EpHEDrine SULFATE INJ 50 MG/ML AMP IV PRN; +LACTATED RINGER'S 1000ML 1,000 ML IV SCH; +LIDOCAINE HCL 2% 2 ML VIAL (20MG/ML) ONE; -OXYC7.5T65 PO
[2017-12-05 08:40] VITALS: BP 108/59; PULSE 83; TEMP 36.7; O2SAT 97; Ht 167.6 cm; Wt 59.1 kg
[2017-12-05] MEDS ORDERED: Cysto-Conray II 17.2% 250ML BOTTLE ONE (09:18)
[2017-12-05] MEDS ORDERED: MIDAZOLAM HCL 1 MG/ML 2ML VIAL ONE (09:20)
[2017-12-05] MEDS ORDERED: PROPOFOL IV EMULSION 10 MG/ML 20 ML VIAL IV ONE (09:20)
[2017-12-05] MEDS ORDERED: DEXAMETHASONE SOD INJ 4 MG/ML VIAL ONE (09:20)
[2017-12-05] MEDS ORDERED: ONDANSETRON INJ 2 MG/ML 2 ML VIAL ONE (09:20)
[2017-12-05] MEDS ORDERED: LIDOCAINE HCL 2% 2 ML VIAL (20MG/ML) ONE (09:20)
[2017-12-05] MEDS ORDERED: FENTANYL CITRATE INJ 50 MCG/1 ML 2 ML VIAL ONE (09:21)
[2017-12-05] MEDS ORDERED: PHEN-775 PO (09:31)
[2017-12-05] MEDS ORDERED: CIPR-255 PO (09:31)
[2017-12-05] MEDS ORDERED: OXYC7.5T65 PO (09:31)
--- NOTE | 2017-12-05 09:32 | Discharge Instructions ---
Discharge Instructions Date of Service Dec 05, 2017. Admission Reason for Admission: Stones Discharge Discharge Diagnosis / Problem: Stone Discharge Goals Goal(s): Decrease discomfort, Improve function Activity Recommendations Activity Limitations: resume your previous activity Lifting Limitations: gradually increase as tolerated Exercise/Sports Limitations: gradually increase as tolerated Shower/Bathe: no limitations . Instructions / Follow-Up Instructions / Follow-Up May have blood in urine. May have plevic discomfort or pain. Call if any fevers or chills. Current Hospital Diet Patient's current hospital diet: Discharge Diet Recommended Diet: Regular Diet Procedures Procedures Performed: Cysto, Left URS and stone treatment Pending Studies Studies pending at discharge: no Medical Emergencies . Who to Call and When: Medical Emergencies: If at any time you feel your situation is an emergency, please call 911 immediately. . Non-Emergent Contact Non-Emergency issues call your: Primary Care Provider, Urologist Call Non-Emergent contact if: you have a fever, temperature is above 101, temperature is above 101.5, your pain is not controlled, your pain is worsening . . "Provider Documentation" section prepared by Ray Palmer. .
[2017-12-05] MEDS ORDERED: OXYCODONE/ACETAMINOPHEN 7.5-325 TAB PO PRN (09:45)
[2017-12-05] MEDS ORDERED: KETOROLAC TROMETHAMINE 30 MG/ML VIAL ONE (10:13)
--- NOTE | 2017-12-05 10:15 | [facility] Operative Report ---
Operative Report Operative Date Dec 05, 2017. Pre-Operative Diagnosis Stone, left Post-Operative Diagnosis Same Procedure(s) Performed Cystoscopy, left Ureteroscopy, laser lithotripsy, stent placement, retrograde. Surgeon Spencer Estimated Blood Loss Minimal Findings Left stone in kidney. Drains 6 Fr Multilength Anesthesia Type General Complication(s) none Disposition Recovery Room / PACU Indications Bilateral stones, treated right and still having issues with left. Here for stone treatment. Risks and benefits discussed. Description of Procedure Patient was consented and brought back to the operating room. Patient was placed under anesthesia in the supine position and moved to the dorsal lithotomy position. Patient was prepped and draped in the regular sterile fashion. A time out was completed. A 30degree Cystoscope was placed into the bladder and the entire bladder was examined. The UO's were identified. The left was cannulized with a catheter and a retrograde pyelogram was completed. A wire was then placed. A second wire was placed and a ureteral access sheath was placed. The flexible ureteroscope was placed into the sheath and taken to the renal pelvis. Multiple stones were identified mostly in the lower pole calyx and all the stones were pulverized to dust and small fragments. All stones were fully treated. The Scope was slowly removed and the entire ureter examined. The safety wire remained in place. With the wire in place, a 6 Fr Multilength Double J stent was placed. It was confirmed with fluoroscopy. With the stent in place, the bladder was emptied. The scope was removed. The patient was cleaned, aroused from anesthesia, and transferred to the pacu in stable condition having tolerated the procedure well with no complications. I was present and participated in all aspects of the procedure. The patient will be monitored in the PACU until transferred. I attest to the content of the Intraoperative Record and any orders documented therein. Any exceptions are noted below.
[2017-12-05] MEDS: FENTANYL CITRATE INJ 50 MCG/1 ML 2 ML VIAL IV PRN ×4 (10:33→10:56)
--- NOTE | 2017-12-05 10:50 | DIAGNOSTIC IMAGING REPORT ---
RETROGRADE INCLUDES KUB CLINICAL HISTORY: LEFT LASER/LITHO/STENT INSERTION TECHNIQUE: Image intensifier COMPARISON STUDY: None FINDINGS: Retrograde opacification of the left ureter is followed by placement of the laser lithotripsy device, with a stent positioned on the final image. IMPRESSION: Left laser lithotripsy and stent placement. The above report was generated using voice recognition software. It may contain grammatical, syntax or spelling errors. Electronically signed by: Twin Martínez M.D. 12/05/2017 10:49 AM Dictated Date/Time: 12/05/2017 10:48 AM
--- NOTE | 2017-12-05 11:14 | Anesthesiology Progress Note ---
Anesthesia Post Op Note Date & Time Dec 05, 2017 at 11:14 Vital Signs Pain Intensity: 3 Vital Signs Past 12 Hours Date Time Temp Pulse Resp B/P (MAP) Pulse Ox O2 Delivery O2 Flow Rate FiO2 12/05/17 11:05 63 14 103/62 96 Room Air 12/05/17 10:55 63 12 105/56 99 Room Air 12/05/17 10:45 68 15 103/65 100 Oxymask 10 12/05/17 10:35 75 22 96/59 (65) 100 Oxymask 10 12/05/17 10:29 93/63 (77) 12/05/17 10:28 36.4 89 16 100 Oxymask 10 12/05/17 08:40 36.7 83 16 108/59 (75) 97 Room Air Notes Mental Status: alert / awake / arousable, participated in evaluation Pt Amnestic to Procedure: Yes Nausea / Vomiting: adequately controlled Pain: adequately controlled Airway Patency, RR, SpO2: stable & adequate BP & HR: stable & adequate Hydration State: stable & adequate Anesthetic Complications: no major complications apparent
[2017-12-05 11:20] VITALS: BP 93/47; PULSE 58; TEMP 36.4; O2SAT 98
[2017-12-05 11:50] VITALS: BP 93/47; PULSE 58; TEMP 36.5; O2SAT 98
== END 2017-12-05 12:19 | disposition home or self-care (01) ==
LOC: C.ACU 08:21
PROVIDERS: ATTEND Urology
DX: N20.0 Calculus of kidney (principal); M19.90 Unspecified osteoarthritis, unspecified site; F17.200 Nicotine dependence, unspecified, uncomplicated; Z82.49 Family history of ischemic heart disease and other diseases of the circulatory system; Z84.1 Family history of disorders of kidney and ureter; Z83.3 Family history of diabetes mellitus; Z79.899 Other long term (current) drug therapy

== ENCOUNTER → 2017-12-28 | Outpatient (CLI) | payer OTHER ==
[~2017-12-28] MED LIST changes: -ATROPINE SULFATE 0.1 MG/ML 5ML SYR IV PRN; +CIPR-255 PO; -CIPROFLOXACIN / D5W 400 MG IV SCH; -EpHEDrine SULFATE INJ 50 MG/ML AMP IV PRN; -LACTATED RINGER'S 1000ML 1,000 ML IV SCH; -LIDOCAINE HCL 2% 2 ML VIAL (20MG/ML) ONE; +OXYC7.5T65 PO
== END | disposition home or self-care (01) ==
LOC: C.LABSPEC 17:15
PROVIDERS: ATTEND Urology
DX: N20.1 Calculus of ureter (principal)

== ENCOUNTER → 2018-03-22 | Outpatient (CLI) | payer OTHER ==
[2018-03-22 15:54] LABS: ALBUMIN 4.1 gm/dl (3.4-5.0); ALKALINE PHOSPHATASE 79 U/L (45-117); ALT/SGPT 17 U/L (12-78); AST/SGOT 8 U/L (15-37); BLOOD UREA NITROGEN 9 mg/dl (7-18); CALCIUM 9.1 mg/dl (8.5-10.1); CARBON DIOXIDE 27 mmol/L (21-32); CREATININE 0.82 mg/dl (0.60-1.20); GLUCOSE 87 mg/dl (70-99); SODIUM 138 mmol/L (136-145); TOTAL PROTEIN 7.5 gm/dl (6.4-8.2)
== END | disposition home or self-care (01) ==
LOC: C.LAB 14:17
PROVIDERS: ATTEND Urology
DX: N28.1 Cyst of kidney, acquired (principal)

== ENCOUNTER → 2018-03-28 | Outpatient (CLI) | payer OTHER ==
[~2018-03-28] MED LIST changes: +OPTIRAY 320 IV PRN
--- NOTE | 2018-03-28 11:47 | DIAGNOSTIC IMAGING REPORT ---
CT OF THE ABDOMEN AND PELVIS WITH AND WITHOUT CONTRAST HEMATURIA PROTOCOL CLINICAL HISTORY: Renal cyst. History of nephrolithiasis. COMPARISON STUDY: CT of the abdomen and pelvis September 19, 2017 and renal ultrasound February 21, 2018. TECHNIQUE: Unenhanced and split bolus phase imaging of the abdomen and pelvis was performed. Injection of 120 cc Optiray 320 IV was uneventful. A dose lowering technique was utilized adhering to the principles of ALARA. CT DOSE: 742.61 mGycm FINDINGS: Lung bases are clear. Multiple small bilateral intrarenal calculi are noted, including a 4 mm left renal calculus. There are no ureteral calculi. There is no hydroureter. No solid renal lesions are identified although there are numerous subcentimeter bilateral renal lesions which are too small to characterize. These favor cysts. Several water attenuation bilateral renal lesions reflect cysts. The possible left renal mass shown on ultrasound of February 21, 2018 likely reflected a prominent column of Anibal. No corresponding solid renal lesion is present. Mild right collecting system dilatation is unchanged since CT of January 14, 2017. No upper tract urothelial lesion is identified. No bladder lesion is identified by CT. The liver, spleen, adrenal glands and pancreas are normal. There is no lymphadenopathy or ascites. There is no evidence for a bowel obstruction. There are scattered colonic diverticula. A left ovarian corpus luteal cyst is noted. A dominant right ovarian follicle is noted. IMPRESSION: 1. No solid renal lesion identified. The possible left renal solid lesion on ultrasound February 21, 2018 represents normal renal parenchyma. 2. Multiple renal cysts and numerous subcentimeter hypodense renal lesions which are too small to characterize but favor cysts. 3. No change in mild right collecting system dilatation since CT of January 14, 2017. This may reflect a mild UPJ obstruction. 4. Several small bilateral renal calculi. No ureteral calculi. Electronically signed by: Ruben Golden M.D. 03/28/2018 11:46 AM Dictated Date/Time: 03/28/2018 11:24 AM
== END | disposition home or self-care (01) ==
LOC: C.CTS 10:34
PROVIDERS: ATTEND Urology
DX: N28.1 Cyst of kidney, acquired (principal); N28.9 Disorder of kidney and ureter, unspecified; N20.0 Calculus of kidney

== ENCOUNTER → 2018-04-04 | Outpatient (CLI) | payer OTHER ==
[~2018-04-04] MED LIST changes: -OPTIRAY 320 IV PRN
== END | disposition home or self-care (01) ==
LOC: C.LABSPEC 17:04
PROVIDERS: ATTEND Urology
DX: N39.0 Urinary tract infection, site not specified (principal)